=== PATIENT | female | born 1950 | race Caucasian/White ===

== ENCOUNTER 2017-06-13 15:59 | Emergency (ER) | payer MEDICARE ==
[2017-06-13 16:27] LABS: Hematocrit 34.2 % (37.0-47.0); Hemoglobin 11.1 gm/dL (12.5-16.0); Mean Cell Volume 88.8 fl (78-100); Mean Corpuscular Hemoglobin 28.8 pg (27-31); Mean Corpuscular Hgb Conc 32.5 g/dl (32-36); Mean Platelet Volume 13.9 fl (6.0-9.5); Neutrophil # 4.4 K/mm3 (1.3-6.0); Neutrophil % 63.7 % (42-75.0); Platelet Count 77 K/mm3 (150-450); Red Blood Count 3.85 M/mm3 (4.2-5.4); Red Cell Distribution Width 14.9 % (11.5-14.0)
[2017-06-13] MEDS ORDERED: MORPHINE SULFATE 4 MG/ML SYRG IV ONE (16:34)
[2017-06-13] MEDS ORDERED: NORMAL SALINE 1,000 ML IV ONE (16:34)
[2017-06-13] MEDS ORDERED: PANTOPRAZOLE SODIUM 40 MG in NORMAL SALINE 100 ML IV ONE (16:35)
[2017-06-13 16:40] LABS: Albumin * 2.7 gm/dl (3.4-5.0); Anion Gap 15.2 mmol/L (6.8-13.8); BUN/Creatinine Ratio 11.8 (9.0-21.6); Bilirubin, Total 2.4 mg/dL (0.0-1.1); Ca. Corrected For Albumin 9.2 mg/dL (8.4-10.2); Calcium * 8.5 mg/dL (7.9-10.9); Carbon Dioxide 24.2 mmol/L (24-32.6); Potassium 4.4 mmol/L (3.4-4.6); Total Protein 6.8 gm/dL (6.2-8.2)
--- NOTE | 2017-06-13 16:53 | ERNOTE ---
Abdominal HPI - Narrative Date of Service: 06/13/17 - General Chief Complaint: Abdominal Pain Time Seen by Provider: 06/13/17 16:17 Source: patient Exam Limitations: no limitations - Immun/Allergies/Home Medications Immunizatons: IMMUNIZATION HX Immunizations Up to Date Yes History of Influenza Vaccine No Hx Pneumococcal Vaccination No Allergies/Adverse Reactions: Allergies cephalexin [Cephalexin] Allergy (Verified 06/13/17 16:09) latex Allergy (Verified 06/13/17 16:09) oxybutynin Allergy (Verified 06/13/17 16:09) sulfamethoxazole [Sulfamethoxazole] Allergy (Verified 06/13/17 16:09) Home Medications: HOME MEDICATIONS Aspirin [Aspir 81] 81 mg PO DAILY 09/07/12 [Last Taken Unknown] Escitalopram Oxalate [Lexapro] 20 mg PO DAILY 09/07/12 [Last Taken Unknown] Insulin Glargine,Hum.rec.anlog [Lantus] 20 unit SQ HS 09/07/12 [Last Taken Unknown] Liraglutide [Victoza 2-Levy] 0.6 mg SQ DAILY 09/07/12 [Last Taken Unknown] Losartan Potassium 100 mg PO DAILY 09/07/12 [Last Taken Unknown] Metformin HCl 1,000 mg PO BID 09/07/12 [Last Taken Unknown] ALPRAZolam [Xanax] 0.25 mg PO BID PRN 06/13/17 [Last Taken Unknown] Amlodipine Besylate 5 mg PO DAILY 06/13/17 [Last Taken Unknown] Atorvastatin Calcium [Lipitor] 20 mg PO HS 06/13/17 [Last Taken Unknown] Buspirone HCl 7.5 mg PO BID 06/13/17 [Last Taken Unknown] Omeprazole 20 mg PO DAILY 06/13/17 [Last Taken Unknown] Propranolol HCl [Inderal Xl] 240 mg PO DAILY 06/13/17 [Last Taken Unknown] - History of Present Illness Narrative: Pt with h/o diabetes, primary biliary cirrhosis, small varices presents with a month long h/o upper abdominal pain, diarrhea and bloating. Initially the diarrhea was severe; it has improved since starting OTC diarrhea medication. The abdominal pain improves with food for approx 30 min then returns. She sts that she often feels weak and like she could pass out while ambulating. No fever, pos chills, no melena. Diarrhea is now 7-10 times per day bu not as copious Date (Duration): 05/14/17 Timing: constant, getting worse Quality: moderate, dullness, fullness Modifying Factors - (Improves): Present: eating Modifying Factors - (Worsens): Present: other - zofran and otc diarrhea meds Associated Symptoms: Present: diarrhea-mucous, nausea, shortness of breath, other - near syncope, SOB has been present for several yrs. Absent: vomiting Review of Systems - Review of Systems Constitutional: Present: chills EYE: Present: no symptoms reported ENT: Present: no symptoms reported Respiratory: Present: shortness of breath - chronic Cardiology: Present: See HPI Gastrointestinal/Abdominal: Present: See HPI, nausea, abdominal pain Genitourinary: Present: no symptoms reported Musculoskeletal: Present: no symptoms reported Skin: Present: no symptoms reported Neurological: Present: dizziness/light-headedness Endocrine: Present: no symptoms reported Hematologic/Lymphatic: Present: no symptoms reported Psych: Present: no symptoms reported All Other Systems: All systems neg except as marked - Patient's Past Medical History Patient History - Medical: Diabetes Type 2 Insulin Dependent, Other Patient History - Cardiac/Respiratory: Coronary Heart Disease, Hypertension, Hyperlipidemia Patient History - Cancer: Melanoma Patient History - Surgical Procedures: Coronary Bypass Surgery, EGD - Social History Smoking Status: Never smoker Have you smoked in the past 12 months: No - Immunizations Immunizations Up to Date: Yes Hx Pneumococcal Vaccination: No History of Influenza Vaccine: No Physical Exam - Physical Exam General Appearance: Present: alert, mild distress Head Exam: Present: normal inspection Eye Exam: Normal inspection: bilateral Ears, Nose, Throat: Present: normal ENT inspection Neck: Present: normal inspection Respiratory: Present: no respiratory distress Cardiovascular/Chest: Present: regular rate, rhythm Peripheral Pulses: N=norm/S=strong/W=weak/B=bound/A=absent: Carotid (R): Normal , Carotid (L): Normal, Dorsalis-pedis (R): Normal, Dorsalis-pedis (L): Normal Gastrointestinal/Abdominal: Present: normal bowel sounds, tenderness - mild, distended - possible fluid wave Back Exam: Present: normal inspection Extremity Exam: Present: normal inspection Neurological Exam: Present: alert Skin Exam: Present: normal color Lymphatic Exam: Present: no adenopathy ED Progress - Results and Orders Patient's Lab Results:: I have reviewed the patient's lab results. - Vital Signs Patient's Vital Signs:: I have reviewed the patient's vital signs. Vital Signs: Vital Signs 06/13/17 16:04 Temperature 38.2 C H Pulse Rate 90 Respiratory 14 Rate Blood Pressure 163/77 O2 Sat by Pulse 96 Oximetry - Progress/Reassessment Chief Complaint: Abdominal Pain Progress:: Improved Plan - Plan Plan: spoke with Dr. Blair, GI fellow at the [facility]. After reviewing the case with him he recommended that the pt come to the [facility] for further eval and care. I then spoke with Dr. Avery who agreed to accept the pt in transfer at the [facility]. I do not believe that the pt would be best served at [facility] as she has several comorbities including varices, cirrhosis, diabetes, cardiac bypass. Departure Clinical Impression: Portal vein thrombosis, Ascites of liver - Departure Disposition: [facility] Condition: Good Referrals: Topher Mendez MD [Primary Care Provider] -
[2017-06-13 17:29] LABS: Urine Appearance Slightly Cloudy; Urine Color Yellow
[2017-06-13 17:30] LABS: Urine Bilirubin Negative (NEGATIVE); Urine Blood 5 /ul (NEGATIVE); Urine Ketone Negative (NEGATIVE); Urine Nitrite Negative (NEGATIVE); Urine Protein 30 mg/dL (NEGATIVE); Urine Specific Gravity 1.025 SP.GR. (1.005-1.010); Urine Urobilinogen Normal (NORMAL)
[2017-06-13 17:31] LABS: Urine RBC 0-5 /hpf (0-5); Urine WBC 0-5 /hpf (0-5)
[2017-06-13 17:32] LABS: Urine Bacteria None Seen
[2017-06-13] MEDS ORDERED: MORPHINE SULFATE 4 MG/ML SYRG ONE (17:40)
[2017-06-13] MEDS ORDERED: PANTOPRAZOLE SODIUM 40 MG/100 ML PIGGYBACK IV ONE (17:40)
[2017-06-13 19:41] VITALS: BP 165/81
== END 2017-06-13 19:39 | disposition short-term general hospital (02) ==
LOC: ER 15:59
DX: I81 Portal vein thrombosis (principal); R18.8 Other ascites; E11.9 Type 2 diabetes mellitus without complications; Z79.4 Long term (current) use of insulin; I25.2 Old myocardial infarction; I10 Essential (primary) hypertension; R78.5 Finding of other psychotropic drug in blood; Z85.820 Personal history of malignant melanoma of skin

== ENCOUNTER 2017-07-01 20:00 | Emergency (ER) | payer MEDICARE ==
--- NOTE | 2017-07-01 20:47 | ERNOTE ---
Abdominal HPI - General Chief Complaint: Abdominal Pain Time Seen by Provider: 07/01/17 20:06 Source: patient Exam Limitations: no limitations - Immun/Allergies/Home Medications Immunizatons: IMMUNIZATION HX Immunizations Up to Date Yes History of Influenza Vaccine No Hx Pneumococcal Vaccination No Allergies/Adverse Reactions: Allergies cephalexin [Cephalexin] Allergy (Verified 07/01/17 20:10) latex Allergy (Verified 07/01/17 20:10) oxybutynin Allergy (Verified 07/01/17 20:10) sulfamethoxazole [Sulfamethoxazole] Allergy (Verified 07/01/17 20:10) Home Medications: HOME MEDICATIONS Aspirin [Aspir 81] 81 mg PO DAILY 09/07/12 [Last Taken Unknown] Escitalopram Oxalate [Lexapro] 20 mg PO DAILY 09/07/12 [Last Taken Unknown] Insulin Glargine,Hum.rec.anlog [Lantus] 20 unit SQ HS 09/07/12 [Last Taken Unknown] Liraglutide [Victoza 2-Levy] 0.6 mg SQ DAILY 09/07/12 [Last Taken Unknown] Losartan Potassium 100 mg PO DAILY 09/07/12 [Last Taken Unknown] Metformin HCl 1,000 mg PO BID 09/07/12 [Last Taken Unknown] ALPRAZolam [Xanax] 0.25 mg PO BID PRN 06/13/17 [Last Taken Unknown] Atorvastatin Calcium [Lipitor] 20 mg PO HS 06/13/17 [Last Taken Unknown] Buspirone HCl 7.5 mg PO BID 06/13/17 [Last Taken Unknown] Omeprazole 20 mg PO DAILY 06/13/17 [Last Taken Unknown] Propranolol HCl [Inderal Xl] 240 mg PO DAILY 06/13/17 [Last Taken Unknown] Axion 07/01/17 [Last Taken Unknown] Ondansetron [Zofran Odt] 4 mg PO Q6H PRN 07/01/17 [Last Taken Unknown] Tramadol HCl [Rybix Odt] 50 mg PO QID 07/01/17 [Last Taken Unknown] HYDROcodone/ACETAMINOPHEN [Hydrocodon-Acetaminoph 7.5-325] 1 each PO Q4H PRN # 16 tablet 07/02/17 [Last Taken Unknown] - History of Present Illness Narrative: Patient with 2 week ago diagnosis of 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 She complains of abdominal pain. She was recently given a dietary supplement by her daughter called Axion, which is a probiotic. Her abdominal pain has started since she started the Axion. She was not given any scripts for abdominal pain, and states that she didn't have any pain until today. She acknowledges that her cancer is terminal, and she wants a lot of control over her treatment. Tonight she wants the pain to go away. She states she saw "about every doctor at [facility]". Timing: constant, getting worse Quality: severe, fullness Activities at Onset: rest Modifying Factors - (Worsens): Present: other - A nutritional supplement her daughter gave her. Associated Symptoms: Present: nausea, loss of appetite Prior Treatment: Present: recently seen, treated by physician, recently hospitalized Review of Systems - Review of Systems Constitutional: Present: recent illness, weakness, fatigue, malaise. Absent: fever, chills, weight loss EYE: Present: no symptoms reported ENT: Absent: ear pain, sore throat Respiratory: Absent: shortness of breath, cough Cardiology: Absent: chest pain Gastrointestinal/Abdominal: Present: nausea, abdominal pain. Absent: vomiting, diarrhea, constipation Genitourinary: Present: no symptoms reported Musculoskeletal: Present: no symptoms reported Skin: Present: no symptoms reported Neurological: Present: no symptoms reported Endocrine: Present: no symptoms reported Hematologic/Lymphatic: Present: no symptoms reported Psych: Present: anxiety, depressed - Patient's Past Medical History Patient History - Medical: Anxiety, Diabetes Type 2 Insulin Dependent, Other Patient History - Cardiac/Respiratory: Coronary Heart Disease, Hypertension, Hyperlipidemia Patient History - Cancer: Liver, Melanoma Patient History - Surgical Procedures: Coronary Bypass Surgery, EGD Patient History - Other: None - Social History Living Situations: home Psych History: Hx of Anxiety Smoking Status: Never smoker Alcohol Use: none Drug Use: none - Immunizations Immunizations Up to Date: Yes Hx Pneumococcal Vaccination: No History of Influenza Vaccine: No Physical Exam - Physical Exam General Appearance: Present: wd/wn, alert, moderate distress, anxious, obese Head Exam: Present: normal inspection, no evidence of injury Eye Exam: Normal inspection: bilateral, PERRL: bilateral, EOMI: bilateral Ears, Nose, Throat: Present: normal ENT inspection Neck: Present: normal inspection, nontender Respiratory: Present: no respiratory distress, normal breath sounds, no accessory muscle use, chest nontender, lungs clear Cardiovascular/Chest: Present: regular rate, rhythm, no murmur Gastrointestinal/Abdominal: Present: normal bowel sounds, soft, tenderness - RUQ and epigastric Back Exam: Present: normal inspection, normal range of motion Extremity Exam: Present: normal inspection, normal range of motion Neurological Exam: Present: alert, oriented, normal mood/affect, no motor/ sensory deficits Skin Exam: Present: normal color, warm/dry ED Progress - Vital Signs Patient's Vital Signs:: I have reviewed the patient's vital signs. Vital Signs: Vital Signs 07/01/17 20:04 Temperature 36.8 C Pulse Rate 94 Respiratory 20 Rate Blood Pressure 165/70 O2 Sat by Pulse 99 Oximetry - Progress/Reassessment Chief Complaint: Abdominal Pain Progress:: Improved Progress Note-Subjective: 07/02/17 00:12 Patient feeling better, will discharge home. Has received morphine 2 mg IV X 2, will discharge home with hydrocodone/acetaminophen to go and a script for more. She is to call [facility] tomorrow for further instructions. Departure Clinical Impression: Liver cancer, primary, with metastasis from liver to other site Abdominal pain Qualifiers: Abdominal location: right upper quadrant Qualified Code(s): R10.11 - Right upper quadrant pain - Departure Disposition: Home self-care Condition: Good Instructions: Liver Cancer Referrals: Lincoln Salinas MD [Associate] - (Call tomorrow to discuss your pain issues with Dr. Salinas's office) Prescriptions: HYDROcodone/ACETAMINOPHEN [Hydrocodon-Acetaminoph 7.5-325] 1 each PO Q4H PRN # 16 tablet PRN Reason: Pain
[2017-07-01] MEDS ORDERED: LIDOCAINE HCL 20 ML UDC PO ONE (21:00)
[2017-07-01] MEDS ORDERED: SUCRALFATE 1 G/10 ML UDC PO ONE (21:00)
[2017-07-01] MEDS ORDERED: MAG HYDROX/ALUMINUM HYD/SIMETH 30 ML UDC PO ONE (21:00)
[2017-07-01] MEDS ORDERED: ONDANSETRON HCL/PF 2 MG/ML VIAL ONE (21:13)
[2017-07-01] MEDS ORDERED: ONDANSETRON HCL/PF 2 MG/ML VIAL IV ONE (21:14)
[2017-07-01] MEDS ORDERED: MORPHINE SULFATE 2 MG/ML DISP.SYRIN IV ONE (22:50)
[2017-07-01] MEDS ORDERED: MORPHINE SULFATE 2 MG/ML DISP.SYRIN ONE (22:52)
[2017-07-02] MEDS ORDERED: HYDROcodone/ACETAMINOPHEN 1 EACH TABLET PO ONE (00:16)
[2017-07-02] MEDS ORDERED: MORPHINE SULFATE 2 MG/ML DISP.SYRIN IV ONE (00:16)
[2017-07-02] MEDS ORDERED: HYDROcodone/ACETAMINOPHEN 1 EACH TABLET ONE (00:17)
[2017-07-02] MEDS ORDERED: MORPHINE SULFATE 2 MG/ML DISP.SYRIN ONE (00:17)
[2017-07-02 01:44] VITALS: BP 146/84
== END 2017-07-02 00:31 | disposition home or self-care (01) ==
LOC: ER 20:00
DX: C22.8 Malignant neoplasm of liver, primary, unspecified as to type (principal); C79.9 Secondary malignant neoplasm of unspecified site; R10.11 Right upper quadrant pain; E11.9 Type 2 diabetes mellitus without complications; Z79.4 Long term (current) use of insulin; I25.2 Old myocardial infarction; I10 Essential (primary) hypertension; E78.5 Hyperlipidemia, unspecified; F41.9 Anxiety disorder, unspecified; Z85.828 Personal history of other malignant neoplasm of skin
CPT/HCPCS: 96374; 96375; 99284; J2405